=== PATIENT | female | born 2000 | race Hispanic/Latino ===

== ENCOUNTER 2024-12-25 09:23 | Emergency (ER) | payer SELFPAY ==
[~2024-12-25] VITALS: Ht 149.9 cm; Wt 82.6 kg
[2024-12-25 09:35] VITALS: PULSE 82; RESP 18; TEMP 99.3; O2SAT 98
[2024-12-25] MEDS ORDERED: ZIPRASIDONE 20 MG VIAL IM PRN (10:00)
[2024-12-25] MEDS: ONDANSETRON HCL INJ 2MG/ML 2ML 2 MG/ML VIAL IV STA (10:25)
[2024-12-25] MEDS: SODIUM CHLORIDE 0.9% 1000ML 1,000 ML IV ONE (10:25)
[2024-12-25] MEDS: ACETAMINOPHEN 325 MG TAB PO ONE (10:26)
[2024-12-25] MEDS ORDERED: POTASSIUM CHLORIDE 10MEQ EA PO ONE (10:30)
== END 2024-12-25 10:30 | disposition left against medical advice (07) ==
LOC: FSED 09:47
DX: R10.84 Generalized abdominal pain (principal); N30.90 Cystitis, unspecified without hematuria; R11.2 Nausea with vomiting, unspecified; E86.0 Dehydration; E87.6 Hypokalemia; F12.10 Cannabis abuse, uncomplicated; E66.9 Obesity, unspecified; Z76.5 Malingerer [conscious simulation]
CPT/HCPCS: 99284; J2405; J7030; 93005